=== PATIENT | male | born 1930 | race Caucasian/White ===

== ENCOUNTER 2017-01-22 20:37 | Emergency (ER) | payer OTHER, BC ==
[~2017-01-22] VITALS: Ht 180.3 cm; Wt 90.9 kg
[~2017-01-22 20:37] MED LIST: AMOX TR-K CLV1 EAC4 PO; ASPIR 8181 M1 PO; ATORVASTATIN CA80 MG PO; CALCIUM 500 +1 EACH PO; COLACE100 MG PO; DELTASONE20 M1 PO; FLONASE16 G1 BOTH NARES; HEPARIN SO5000 UNITS SC; MECLIZINE HCL25 MG PO; METOPROLOL TART25 MG PO; OMEPRAZOLE20 MG PO; STUDY DRUG PO
[2017-01-22] MEDS ORDERED: KEFLEX500 MG PO (23:55)
[2017-01-22] MEDS ORDERED: ULTRAM50 MG PO (23:55)
[2017-01-23 00:21] VITALS: BP 155/77
== END 2017-01-23 00:21 | disposition home or self-care (01) ==
LOC: EME 20:37 → EXP 20:37
DX: S61.411A Laceration without foreign body of right hand, initial encounter (principal); S66.921A Laceration of unspecified muscle, fascia and tendon at wrist and hand level, right hand, initial encounter; S61.012A Laceration without foreign body of left thumb without damage to nail, initial encounter; W26.8XXA Contact with other sharp object(s), not elsewhere classified, initial encounter; Y93.89 Activity, other specified; Z23 Encounter for immunization; Z87.891 Personal history of nicotine dependence
CPT/HCPCS: 73130; 99281; 99284